=== PATIENT | male | born 2000 | race Caucasian/White ===

== ENCOUNTER 2022-08-16 02:20 | Emergency (ER) | payer BC ==
[2022-08-16] MEDS ORDERED: Ondansetron PF 4 MG/2 ML Vial ONE (03:32)
[2022-08-16] MEDS ORDERED: Morphine 4 MG/ML VIAL ONE ×2 (03:32→07:02)
[2022-08-16 03:39] LABS: Bilirubin Neg (Negative); Blood, Urine Negative (Negative); Clarity Clear (Clear); Glucose, Urine (Dipstick) Normal (Negative); Ketone, Urine 5 mg/dL (Negative); Leukocyte Negative (Negative); Nitrite Negative (Negative); Protein, Urine (Dipstick) 100 mg/dl (Neg-Trace); Urobilinogen Normal mg/dL (Less than 2); pH, Urine 6.5 (5.0-9.0)
[2022-08-16 03:43] LABS: #Eosinphils 0.2 10x3/uL (0.0-0.5); #Monocytes 0.5 10x3/uL (0.0-1.1); #Neutrophils 3.9 10x3/uL (1.5-8.4); %Basophils 0.3 % (0.0-2.0); %Eosinophils 2.9 % (0.0-6.0); %Lymphocytes 39.1 % (18.0-47.0); %Monocytes 6.3 % (0.0-10.0); %Neutrophils 51.3 % (40.0-75.0); Hemoglobin 16.3 g/dL (13.5-17.5); Mean Corpuscular HGB CONC 34.9 g/dL (32.0-36.0); Mean Corpuscular Hemoglobin 29.7 pg (27.0-33.0); Mean Corpuscular Volume 85.2 fl (81.2-95.1); Mean Platelet Volume 9.1 fl (7.4-10.4); Platelet Count 286 10x3/uL (150-450); RBC Distribution Width 13.3 % (11.5-14.5); Red Blood Cell (RBC) Count 5.48 10x6/uL (4.32-5.72); White Blood Cell (WBC) Count 7.5 10x3/uL (3.5-10.5)
[2022-08-16 03:52] LABS: Bacteria/HPF 1+ HPF (None Seen); Mucous/LPF 1+ LPF (<2+); RBC/HPF 0-3 HPF (0-3)
[2022-08-16 03:54] LABS: ALT (SGPT) 34 U/L (8-55); AST (SGOT) 56 U/L (5-34); Albumin 4.7 g/dL (3.5-5.0); Alkaline Phosphatase 51 U/L (50-130); Anion Gap 17 mmol/L (10-20); BUN (Urea Nitrogen) 13 mg/dL (8.9-20.6); Bilirubin, Total 0.5 mg/dL (0.2-1.2); Calc. Creatinine Clearance 0 mL/min (70-130); Calcium 9.4 mg/dL (7.8-10.44); Carbon Dioxide 22 mmol/L (22-29); Chloride 104 mmol/L (98-107); Estimated GFR 94; Globulin 3.2 g/dL (2.4-3.5); Glucose 121 mg/dL (70-105); Lipase 18 U/L (8-78); Potassium 3.6 mmol/L (3.5-5.1); Protein, Total 7.9 g/dL (6.0-8.3); Sodium 139 mmol/L (136-145)
[2022-08-16] MEDS ORDERED: Iopamidol 370 76% 100 ML VIAL ONE (13:48)
== END 2022-08-16 07:28 | disposition home or self-care (01) ==
LOC: CSHERS 02:20
DX: R10.31 Right lower quadrant pain (principal); J45.909 Unspecified asthma, uncomplicated; F17.220 Nicotine dependence, chewing tobacco, uncomplicated; F17.210 Nicotine dependence, cigarettes, uncomplicated
CPT/HCPCS: 74177; 76705; 80053; 81003; 81015; 83605; 83690; 85025; 96361; 96374; 96375; 96376; J2270; J2405; Q9967

== ENCOUNTER 2025-08-04 09:19 | Day surgery (SDC) | payer BC ==
[2025-08-03 13:39] VITALS: BMI 23.7
[2025-08-04] MEDS ORDERED: Bacitracin 1 PK ONE (12:34)
[2025-08-04] MEDS ORDERED: Lidocaine 1% w/Epinephrine 1:200K 30 ML VIAL ONE (12:35)
[2025-08-04] MEDS ORDERED: PROPOFOL 20 ML ONE (12:47)
[2025-08-04] MEDS ORDERED: Lidocaine 1% PF 5 ML VIAL ONE (12:47)
[2025-08-04] MEDS ORDERED: Ondansetron PF 4 MG/2 ML Vial ONE (13:02)
[2025-08-04] MEDS ORDERED: oxyCODONE 5 MG TAB ONE (14:07)
== END 2025-08-04 14:50 | disposition home or self-care (01) ==
LOC: CSHSDC 09:19
PROVIDERS: ATTEND Specialist
PROC: 0HB2XZZ Excision of Right Ear Skin, External Approach (ICD-10-PCS; principal; 2025-08-04)
DX: H61.891 Other specified disorders of right external ear (principal); L85.8 Other specified epidermal thickening; F98.8 Other specified behavioral and emotional disorders with onset usually occurring in childhood and adolescence
CPT/HCPCS: 88305; 88341; 88342; 88346; 88350; J1100; J2704